=== PATIENT | male | born 1980 | race African-American/Black ===

== ENCOUNTER 2019-05-30 16:12 | Emergency (ER) | payer MEDICAID ==
[~2019-05-30] VITALS: Ht 190.5 cm; Wt 72.6 kg
[2019-05-30] MEDS ORDERED: IV NORMAL SALINE 1,000ML 1,000 ML IV ONE (16:45)
[2019-05-30] MEDS ORDERED: ONDANSETRON PF 4 MG/2 ML VIAL. IVP ONE (16:45)
[2019-05-30] MEDS ORDERED: KETOROLAC 30 MG/ML VIAL. IVP ONE (16:45)
--- NOTE | 2019-05-30 17:34 | RAD ---
Examination: CT of the abdomen pelvis without contrast HISTORY: History of right flank pain COMPARISON: None available TECHNIQUE: Axial CT images of the abdomen pelvis were performed without contrast. Coronal and sagittal reformats are performed. Exposure: One or more of the following individualized dose reduction techniques were utilized for this examination: 1. Automated exposure control 2. Adjustment of the mA and/or kV according to patient size 3. Use of iterative reconstruction technique FINDINGS: The bibasilar lungs are clear. No evidence of free air identified in the abdomen. The evaluation of the solid organs is limited due to lack of IV contrast. The evaluation of bowel is limited due to lack of oral contrast. The visualized liver, spleen, adrenals grossly appears unremarkable. Gallbladder is mildly distended. The stomach is mildly distended. The visualized pancreas grossly appears unremarkable. The small bowel is nondilated. The appendix is normal. Feces and gas noted in the colon. Urinary bladder is mildly distended. Mild right-sided hydronephrosis and hydroureter identified with a 3.5 mm tablet identified in the right ureterovesical junction. There is a 2 cm isodensity identified in the left kidney medially could be a renal lobulation or mass. No evidence of lytic bony destructive lesion. IMPRESSION: 1. A 3.5 mm calculus identified in the right ureterovesical junction causing mild right-sided hydronephrosis and hydroureter. 2. A 2 cm isodensity identified in the left kidney medially could be lobulation or mass. Recommend nonemergent ultrasound kidneys for further evaluation. Electronically signed by: Kevin Luna MD (05/30/2019 5:31 PM) [facility]
[2019-05-30 17:39] LABS: BASO % 0 % (0-3); EOS % 0 % (0-3); HEMATOCRIT 47.5 % (39.0-53.0); HEMOGLOBIN 15.5 g/dL (13.0-17.5); LYMPH # 1.3 x10^3/uL (1.0-4.8); LYMPH % 7 % (24-48); MEAN CORPUSCULAR HEMOGLOBIN 31 pg (25-35); MEAN CORPUSCULAR HGB CONC 33 g/dL (31-37); MEAN CORPUSCULAR VOLUME 94 fL (79-100); MONO # 0.7 x10^3/uL (0.0-1.1); MONO % 4 % (0-9); NEUT # 14.9 x10^3uL (1.8-7.7); NEUT % 88 % (31-73); PLATELET COUNT 203 x10^3/uL (140-400); RED BLOOD COUNT 5.08 x10^6/uL (4.30-5.70); RED CELL DISTRIBUTION WIDTH 13.4 % (11.5-14.5); WHITE BLOOD COUNT 16.9 x10^3/uL (4.0-11.0)
[2019-05-30 17:45] VITALS: BP 138/68
[2019-05-30 17:48] LABS: CALCIUM 9.6 mg/dL (8.5-10.1); CREATININE 1.3 mg/dL (0.7-1.3); GFR 74.8; POTASSIUM 3.5 mmol/L (3.5-5.1)
--- NOTE | 2019-05-30 17:48 | PHYS DOC ---
Past History Past Medical History: No Pertinent History Past Surgical History: No Surgical History Alcohol Use: Occasionally Drug Use: None Adult General Chief Complaint Chief Complaint: FLANK PAIN HPI HPI 38-year-old male presents with one-day history of right flank pain. His pain is 8 out of 10 and intermittent and sharp. He denies dysuria or increased urinary frequency. He denies any trauma or falls. He denies fever or chills. Review of Systems Review of Systems Constitutional: Denies fever or chills [] Eyes: Denies change in visual acuity, redness, or eye pain [] HENT: Denies nasal congestion or sore throat [] Respiratory: Denies cough or shortness of breath [] Cardiovascular: No additional information not addressed in HPI [] GI: Denies abdominal pain, nausea, vomiting, bloody stools or diarrhea [] : Denies dysuria or hematuria [] Musculoskeletal: Denies back pain or joint pain [] Integument: Denies rash or skin lesions [] Neurologic: Denies headache, focal weakness or sensory changes [] Endocrine: Denies polyuria or polydipsia [] All other systems were reviewed and found to be within normal limits, except as documented in this note. Current Medications Current Medications Current Medications Medications (Trade) Dose Ordered Sig/Jan Start Time Stop Time Status Last Admin Dose Admin Ketorolac Tromethamine (Toradol 30mg Vial) 30 mg 1X ONCE 05/30/19 16:45 05/30/19 16:47 DC 05/30/19 16:45 30 MG Ondansetron HCl (Zofran) 4 mg 1X ONCE 05/30/19 16:45 05/30/19 16:47 DC 05/30/19 16:45 4 MG Sodium Chloride 1,000 ml @ 1,000 mls/hr 1X ONCE 05/30/19 16:45 05/30/19 17:44 DC 05/30/19 17:10 1,000 MLS/HR Allergies Allergies Allergies Coded Allergies Type Severity Reaction Last Updated Verified No Known Drug Allergies 05/30/19 No Physical Exam Physical Exam Constitutional: Well developed, well nourished, no acute distress, non-toxic appearance. [] HENT: Normocephalic, atraumatic, bilateral external ears normal, oropharynx moist, no oral exudates, nose normal. [] Eyes: PERRLA, EOMI, conjunctiva normal, no discharge. [] Neck: Normal range of motion, no tenderness, supple, no stridor. [] Cardiovascular:Heart rate regular rhythm, no murmur [] Lungs & Thorax: Bilateral breath sounds clear to auscultation [] Abdomen: Bowel sounds normal, soft, no tenderness, no masses, no pulsatile masses. [] Skin: Warm, dry, no erythema, no rash. [] Back: No tenderness, no CVA tenderness. [] Extremities: No tenderness, no cyanosis, no clubbing, ROM intact, no edema. [] Neurologic: Alert and oriented X 3, normal motor function, normal sensory function, no focal deficits noted. [] Psychologic: Affect normal, judgement normal, mood normal. [] Current Patient Data Vital Signs Vital Signs Date Time Temp Pulse Resp B/P (MAP) Pulse Ox O2 Delivery O2 Flow Rate FiO2 05/30/19 16:41 97.5 54 16 100 Lab Results Laboratory Tests Test 05/30/19 17:16 White Blood Count 16.9 x10^3/uL (4.0-11.0) H Red Blood Count 5.08 x10^6/uL (4.30-5.70) Hemoglobin 15.5 g/dL (13.0-17.5) Hematocrit 47.5 % (39.0-53.0) Mean Corpuscular Volume 94 fL (79-100) Mean Corpuscular Hemoglobin 31 pg (25-35) Mean Corpuscular Hemoglobin Concent 33 g/dL (31-37) Red Cell Distribution Width 13.4 % (11.5-14.5) Platelet Count 203 x10^3/uL (140-400) Neutrophils (%) (Auto) 88 % (31-73) H Lymphocytes (%) (Auto) 7 % (24-48) L Monocytes (%) (Auto) 4 % (0-9) Eosinophils (%) (Auto) 0 % (0-3) Basophils (%) (Auto) 0 % (0-3) Neutrophils # (Auto) 14.9 x10^3uL (1.8-7.7) H Lymphocytes # (Auto) 1.3 x10^3/uL (1.0-4.8) Monocytes # (Auto) 0.7 x10^3/uL (0.0-1.1) Eosinophils # (Auto) 0.0 x10^3/uL (0.0-0.7) Basophils # (Auto) 0.0 x10^3/uL (0.0-0.2) Platelet Estimate Pending EKG EKG [] Radiology/Procedures Radiology/Procedures [] Impressions: Examination: CT of the abdomen pelvis without contrast HISTORY: History of right flank pain COMPARISON: None available TECHNIQUE: Axial CT images of the abdomen pelvis were performed without contrast. Coronal and sagittal reformats are performed. Exposure: One or more of the following individualized dose reduction techniques were utilized for this examination: 1. Automated exposure control 2. Adjustment of the mA and/or kV according to patient size 3. Use of iterative reconstruction technique FINDINGS: The bibasilar lungs are clear. No evidence of free air identified in the abdomen. The evaluation of the solid organs is limited due to lack of IV contrast. The evaluation of bowel is limited due to lack of oral contrast. The visualized liver, spleen, adrenals grossly appears unremarkable. Gallbladder is mildly distended. The stomach is mildly distended. The visualized pancreas grossly appears unremarkable. The small bowel is nondilated. The appendix is normal. Feces and gas noted in the colon. Urinary bladder is mildly distended. Mild right-sided hydronephrosis and hydroureter identified with a 3.5 mm tablet identified in the right ureterovesical junction. There is a 2 cm isodensity identified in the left kidney medially could be a renal lobulation or mass. No evidence of lytic bony destructive lesion. IMPRESSION: 1. A 3.5 mm calculus identified in the right ureterovesical junction causing mild right-sided hydronephrosis and hydroureter. 2. A 2 cm isodensity identified in the left kidney medially could be lobulation or mass. Recommend nonemergent ultrasound kidneys for further evaluation. Electronically signed by: Kevin Luna MD (05/30/2019 5:31 PM) [facility] DICTATED AND SIGNED BY: KEVIN LUNA MD DATE: 05/30/19 1731 CC: MILVIA LIM DO; PCP,NO ~ Course & Med Decision Making Course & Med Decision Making Pertinent Labs and Imaging studies reviewed. (See chart for details) The patient's CT does show a kidney stone. Is 3.5 mm. It should pass. I will discharge him with [place] pain medication as well as a prescription for Flomax. He is stable for discharge at this time [] Dragon Disclaimer Dragon Disclaimer This electronic medical record was generated, in whole or in part, using a voice recognition dictation system. Departure Departure: Impression: Primary Impression: Kidney stone Disposition: HOME, SELF-CARE Condition: STABLE Referrals: PCP,NO (PCP) Patient Instructions: Kidney Stones, Sguy-re-Rdin Scripts Tamsulosin Hcl (FLOMAX) 0.4 Mg Cap.er.24h 1 CAP PO DAILY for kidney stone for 14 Days, #14 CAP 0 Refills Prov: MILVIA LIM DO 05/30/19 Hydrocodone Bit/Acetaminophen (NORCO 5-325 TABLET) 1 Each Tablet 1 TAB PO PRN Q6HRS PRN for PAIN, #14 TAB 0 Refills Prov: MILVIA LIM DO 05/30/19 MILVIA LIM DO May 30, 2019 17:48
[2019-05-30 17:54] LABS: ALBUMIN 4.5 g/dL (3.4-5.0); ALBUMIN/GLOBULIN RATIO 1.2 (1.0-1.7); TOTAL BILIRUBIN 0.4 mg/dL (0.2-1.0); TOTAL PROTEIN 8.3 g/dL (6.4-8.2)
[2019-05-30] MEDS ORDERED: TAMS0.4C97 PO (18:35)
[2019-05-30] MEDS ORDERED: HYDR-3165 PO (18:35)
[2019-05-30 18:37] LABS: % LYMPHS 17 % (24-48); % MONOS 2 % (0-10); % SEGS 81 % (35-66)
[2019-05-30 18:38] LABS: PLATELET CLUMP PRESENT; PLT ESTIMATE ADEQUATE (ADEQUATE)
[2019-05-30 18:41] LABS: BACTERIA,URINE 0 /HPF (0-FEW); BILIRUBIN,URINE NEG (NEG); CLARITY,URINE HAZY; COLOR,URINE AMBER; GLUCOSE,URINE NEG (NEG); NITRITE,URINE NEG (NEG); SQUAMOUS EPITHELIAL CELL,UR FEW /LPF; UROBILINOGEN,URINE 0.2 mg/dL (0.2 mg/dL)
== END 2019-05-30 18:40 | disposition home or self-care (01) ==
LOC: ER 16:12
DX: N20.0 Calculus of kidney (principal)
CPT/HCPCS: 36415; 74176; 80053; 81001; 85007; 85025; 87086; 96374; 96375; 99285; J1885; J2405; J7030

== ENCOUNTER 2020-09-17 17:59 | Emergency (ER) | payer MEDICAID ==
[~2020-09-17] VITALS: Ht 190.5 cm; Wt 72.7 kg
[~2020-09-17 17:59] MED LIST: HYDR-3165 PO; TAMS0.4C97 PO
[2020-09-17 18:11] VITALS: BP 127/75
[2020-09-17] MEDS ORDERED: HYDR-2759 PO (18:36)
[2020-09-17] MEDS ORDERED: AMOX1TAB61 PO (18:36)
== END 2020-09-17 18:45 | disposition home or self-care (01) ==
LOC: ER 17:59
DX: K02.9 Dental caries, unspecified (principal); K04.7 Periapical abscess without sinus
CPT/HCPCS: 99283